=== PATIENT | male | born 1990 | race Caucasian/White ===

== ENCOUNTER 2018-08-28 19:57 | Emergency (ER) | payer BC, OTHER ==
[2018-08-28 20:04] VITALS: BP 113/59; PULSE 57; TEMP 98.3; BMI 20.5
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
== END 2018-08-28 21:33 | disposition home or self-care (01) ==
LOC: JERFT 19:57
DX: S20.212A Contusion of left front wall of thorax, initial encounter (principal); W50.0XXA Accidental hit or strike by another person, initial encounter; Y93.75 Activity, martial arts; Y92.39 Other specified sports and athletic area as the place of occurrence of the external cause; Y99.8 Other external cause status
CPT/HCPCS: 71046-TC-FY; 71101-TC-FY; 99281-25

== ENCOUNTER 2018-12-11 20:40 | Emergency (ER) | payer OTHER ==
[2018-12-11 21:08] VITALS: BP 140/81; PULSE 59; TEMP 98.2; BMI 19.8
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
--- NOTE | 2018-12-11 23:15 | PDOC ---
Attending Attestation - Resident Resident Name: Jermain Mayen - ED Attending Attestation I have performed the following: I have examined & evaluated the patient, The case was reviewed & discussed with the resident, I agree w/resident's findings & plan
--- NOTE | 2018-12-11 23:49 | PDOC ---
Attending Attestation - HPI HPI: 12/12/18 00:06 The patient is a 28 year old male, with no significant past medical history, who presents to the emergency department with, a laceration to the lateral to the left eye. He denies any change in vision. He denies any recent fevers, chills, headache or dizziness. He denies any recent nausea, vomit, diarrhea or constipation. He denies any recent chest pain or shortness of breath. He denies any recent dysuria, frequency, urgency or hematuria. Allergies: NKDA - Physicial Exam PE: 12/12/18 00:06 GENERAL: Well-appearing, well-nourished. No apparent distress. HEENT: +Adjacent to the lateral left eye 3cm jagged laceration, full-thickness. No entrapment. PERRL, EOM intact. CARDIOVASCULAR: Normal S1, S2. Regular rate and rhythm. PULMONARY: Clear to auscultation bilaterally. ABDOMEN: Soft, non-distended, non-tender. EXTREMITIES: Normal ROM in all four extremities. No gross deformities. SKIN: Warm, dry. No rash NEUROLOGICAL: No focal neurological deficits. <Elis Philip - Last Filed: 12/12/18 00:05> - Resident Resident Name: Abraham Mukherjee - ED Attending Attestation I have performed the following: I have examined & evaluated the patient, The case was reviewed & discussed with the resident, I agree w/resident's findings & plan, Exceptions are as noted - Medical Decision Making 12/12/18 02:29 pt received boostrix wound was cleansed, skin closed w seven sutures cr scan facial bones negative efor fractures <Abi Calixto - Last Filed: 12/12/18 02:30> Attestations - Attestations 12/12/18 00:07 Documentation prepared by Elis Philip, acting as medical records assistant for Abi Calixto MD. <Elis Philip - Last Filed: 12/12/18 00:05>
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
[2018-12-12] MEDS ORDERED: DIPHTH,PERTUSS(ACELL),TET 0.5 ML DISP.SYRIN IM ONE ×2 (00:47→00:48)
== END 2018-12-12 01:01 | disposition home or self-care (01) ==
LOC: JER 20:40 → JERFT 20:40 → JER 12-12 01:01
PROC: 3E0234Z Introduction of Serum, Toxoid and Vaccine into Muscle, Percutaneous Approach (ICD-10-PCS; principal; 2018-12-11)
PROC: 0HQ1XZZ Repair Face Skin, External Approach (ICD-10-PCS; 2018-12-11)
DX: S01.112A Laceration without foreign body of left eyelid and periocular area, initial encounter (principal); Y04.2XXA Assault by strike against or bumped into by another person, initial encounter; Y93.89 Activity, other specified; Y92.89 Other specified places as the place of occurrence of the external cause; Y99.8 Other external cause status; Y07.9 Unspecified perpetrator of maltreatment and neglect
CPT/HCPCS: 12013; 70486-TC; 90471; 90715; 99281-25